=== PATIENT | female | born 1980 | race African-American/Black ===

== ENCOUNTER 2018-05-05 18:01 | Emergency (ER) | payer MEDICAID ==
[~2018-05-05] VITALS: Ht 167.6 cm; Wt 70.0 kg
[2018-05-05 18:11] VITALS: Ht 167.6 cm; Wt 70.0 kg
[2018-05-05] MEDS ORDERED: PREMPHASE 0.621 EACH PO (18:13)
[2018-05-05] MEDS ORDERED: TORADOL10 MG PO (19:32)
[2018-05-05] MEDS ORDERED: ROBAXIN500 MG PO (19:32)
[2018-05-05 20:32] VITALS: BP 110/72
== END 2018-05-05 20:32 | disposition home or self-care (01) ==
LOC: D.ER 18:01
DX: S16.1XXA Strain of muscle, fascia and tendon at neck level, initial encounter (principal); V43.52XA Car driver injured in collision with other type car in traffic accident, initial encounter; Y93.89 Activity, other specified; Y92.410 Unspecified street and highway as the place of occurrence of the external cause; S20.211A Contusion of right front wall of thorax, initial encounter; S50.01XA Contusion of right elbow, initial encounter; S40.011A Contusion of right shoulder, initial encounter; G40.909 Epilepsy, unspecified, not intractable, without status epilepticus; F17.200 Nicotine dependence, unspecified, uncomplicated; M54.5 Low back pain